=== PATIENT | female | born 1975 | race Caucasian/White ===

== ENCOUNTER → 2017-10-23 | Outpatient (CLI) | payer OTHER ==
[~2017-10-23] MED LIST: ACET-1256 PO; ALPR-411 PO; CITA20TA9 PO; CYAN10005 SL; LISI-461 PO; MULT-506 PO; PANT40TA PO; ZOLP5TAB PO
[2017-10-23 16:11] LABS: ALBUMIN 3.2 gm/dl (3.4-5.0); ALT/SGPT 93 U/L (12-78); AST/SGOT 126 U/L (15-37); BLOOD UREA NITROGEN 7 mg/dl (7-18); CALCIUM 8.2 mg/dl (8.5-10.1); CARBON DIOXIDE 27 mmol/L (21-32); CREATININE 1.05 mg/dl (0.60-1.20); GLUCOSE 77 mg/dl (70-99); POTASSIUM 3.9 mmol/L (3.5-5.1); SODIUM 137 mmol/L (136-145)
[2017-10-23 16:14] LABS: ALKALINE PHOSPHATASE 437 U/L (45-117); TOTAL PROTEIN 6.4 gm/dl (6.4-8.2)
== END | disposition home or self-care (01) ==
LOC: C.LAB 14:58
PROVIDERS: ATTEND Registered Nurse
DX: R74.8 Abnormal levels of other serum enzymes (principal)

== ENCOUNTER → 2017-11-06 | Outpatient (CLI) | payer OTHER ==
--- NOTE | 2017-11-06 21:50 | DIAGNOSTIC IMAGING REPORT ---
[facility] CLINICAL HISTORY: Epigastric pain, nausea, autoimmune hepatitis, elevated LFTs. COMPARISON STUDY: 05/25/2009 FINDINGS: The spleen is enlarged measuring 13 cm. The gallbladder is surgically absent. The intrahepatic ducts are the upper limits of normal in size. The common bile duct measures 5 mm. No ductal filling defects are visualized. The pancreas appears somewhat atrophic. There is no pancreatic ductal dilatation. There is a 25 mm right adnexal cyst, likely ovarian. IMPRESSION: 1. Surgically absent gallbladder 2. Stable mild splenomegaly 3. The intrahepatic ducts are at the upper limits of normal in size. There is no extrahepatic biliary ductal dilatation. There is no pancreatic ductal dilatation. No ductal filling defects are visualized. Electronically signed by: Alcon Curran M.D. 11/06/2017 9:49 PM Dictated Date/Time: 11/06/2017 9:42 PM
== END | disposition home or self-care (01) ==
LOC: C.MRI 20:12
PROVIDERS: ATTEND Registered Nurse
DX: R11.0 Nausea (principal); R10.13 Epigastric pain; R74.8 Abnormal levels of other serum enzymes; Z87.19 Personal history of other diseases of the digestive system; R16.1 Splenomegaly, not elsewhere classified; Z90.49 Acquired absence of other specified parts of digestive tract